=== PATIENT | male | born 1955 | race Two or more races ===

== ENCOUNTER 2020-04-10 19:23 | Emergency (ER) | payer MEDICAID ==
[~2020-04-10] VITALS: Ht 177.8 cm; Wt 148.0 kg
[2020-04-10 19:34] VITALS: BP 152/86
== END 2020-04-10 20:50 | disposition home or self-care (01) ==
LOC: ER 19:52
DX: F19.10 Other psychoactive substance abuse, uncomplicated (principal); F99 Mental disorder, not otherwise specified; E11.9 Type 2 diabetes mellitus without complications; I10 Essential (primary) hypertension
CPT/HCPCS: 99283